=== PATIENT | female | born 1980 | race Caucasian/White ===

== ENCOUNTER 2020-03-06 20:45 | Observation (INO) | payer BC, SELFPAY ==
--- NOTE | 2020-03-06 23:36 | OBADM ---
This patient, Va Arreaga, admitted to the OB room Labor/Delivery/Recovery 104 for observation. Patient/family oriented to hospital policies and general routines including ID bracelet, bed and alarms, visiting hours, pain management, procedures, bathroom and other care routines, personal items, smoking policy, room service/diet, and visiting hours. Patient/Family are encouraged to report perceived risks to care and to ask questions if they do not understand what they are told or what they should do.
--- NOTE | 2020-03-29 11:18 | PM.OBTRLD ---
OB - Triage/Final Diagnosis Visit Information Date of evaluation: 03/06/20 Reason for evaluation: threatened labor
== END 2020-03-06 23:30 | disposition home or self-care (01) ==
PROVIDERS: Admitting Provider Student in an Organized Health Care Education/Training Program; PCP Family Medicine Adolescent Medicine; Visit Provider Student in an Organized Health Care Education/Training Program
DX: O47.1 False labor at or after 37 completed weeks of gestation (principal); Z3A.37 37 weeks gestation of pregnancy
CPT/HCPCS: G0378; G0379

== ENCOUNTER 2020-03-11 17:25 | Observation (INO) | payer BC, SELFPAY ==
[2020-03-11 17:55] VITALS: BP 121/80; PULSE 78
[2020-03-11 18:01] VITALS: BP 115/73; PULSE 78
[2020-03-11 18:10] VITALS: TEMP 36.3
[2020-03-11 18:15] VITALS: BMI 27.4
[2020-03-11 18:31] VITALS: BP 111/66; PULSE 78
[2020-03-11 18:57] LABS: Add Urine Microscopic? NO; Appearance Urine Clear (Clear); Bilirubin Urine Negative (Negative); Blood Urine Negative (Negative); Color Urine Straw (Yellow); Glucose Urine UA Negative (Negative); Ketones Urine Negative (Negative); Leukocyte Esterase Ur Negative LEU/UL (NEGATIVE); Nitrate Urine Negative (Negative); Protein Urine Negative (Negative); Specific Grav Ur 1.006 (1.001-1.035); Urobilinogen Urine Negative mg/dL (<2.0)
--- NOTE | 2020-03-11 19:22 | OBADM ---
This patient, Va Arreaga, admitted to the OB room OB Post 116 for observation. Patient/family oriented to hospital policies and general routines including ID bracelet, bed and alarms, visiting hours, pain management, procedures, bathroom and other care routines, personal items, smoking policy, room service/diet, and visiting hours. Patient/Family are encouraged to report perceived risks to care and to ask questions if they do not understand what they are told or what they should do.
--- NOTE | 2020-03-15 15:12 | P.PNOB_ITS ---
OB - Triage/Final Diagnosis Evaluation Laboratory results: Laboratory Tests 03/11/20 18:44 Urine Color Straw Urine Appearance Clear Urine pH 7.0 Ur Specific [place] 1.006 Urine Protein Negative Urine Glucose (UA) Negative Urine Ketones Negative Ur Blood (Man) Negative Urine Nitrate Negative Urine Bilirubin Negative Urine Urobilinogen Negative Ur Leukocyte Esterase Negative Final Diagnosis (1) Lightheadedness: Code(s): R42 - Dizziness and giddiness Status: Acute
== END 2020-03-11 19:20 | disposition home or self-care (01) ==
PROVIDERS: Admitting Provider Obstetrics & Gynecology; PCP Family Medicine Adolescent Medicine; Visit Provider Obstetrics & Gynecology
DX: O26.893 Other specified pregnancy related conditions, third trimester (principal); R42 Dizziness and giddiness; Z3A.38 38 weeks gestation of pregnancy
CPT/HCPCS: 81003; 87077; 87086; 87088; G0378; G0379

== ENCOUNTER 2020-03-17 03:00 | Inpatient (IN) | payer BC, SELFPAY ==
[2020-03-17] VITALS (80 sets, daily range): BP systolic 79–138; BP diastolic 43–103; PULSE 55–93; RESP 16–20; TEMP 36.3–37.3; O2SAT 99–100; BMI 27.8
--- NOTE | 2020-03-17 07:31 | WPDHPUPDATE1 ---
History and Physical Update Update Date/Time: 03/17/20 07:31 40 yo at 39ww0d who presents for elective IOL. She initially presented for r/o labor and her cervix remained unchanged. During monitoring, the fetus was noted to have a prolonged heart rate deceleration. Overall the FHT returned to baseline and reamined category 1 for the remainder of the monitoring. Pt was givent he option of BPP and observation or elective induction give her gestational age. pt opted for IOL. She denies any vaginal bleeding or leakage of fluid. has been uncomplicated thus far. History and Physical has been reviewed, including an updated exam of the patient. There are NO changes in the patient's condition. Risks, benefits, and alternatives have been discussed and questions answered. Patient agrees to proceed with procedure. A/P: 40 yo at 39w0d who elective IOL admit to L&D routine admission orders Rh+ GBS neg FHT cat 1 ctx q 10 min on toco cvx 3cm will start pitocin and augment with AROM continuous EFM
--- NOTE | 2020-03-17 08:01 | LDADM ---
This patient, Va Arreaga, was admitted to Labor/Delivery/Recovery 105 on 03/17/20 at 03:00. Plans for labor, pain management and were discussed with patient. Patient/family oriented to hospital policies and general routines including ID bracelet, bed and alarms, visiting hours, pain management, procedures, bathroom and other care routines, personal items, smoking policy, room service/diet and guest tray routines, security routines, and visiting hours. Patient/Family are encouraged to report perceived risks to care and to ask questions if they do not understand what they are told or what they should do. See OBIX for further documentation.
[2020-03-17 08:04] LABS: Basophils Absolute Auto 0.1 K/mm3 (0.0-0.1); Basophils Percent Auto 0.4 % (0.2-1.2); Eosinophils Absolute Auto 0.3 K/mm3 (0-0.3); Eosinophils Percent Auto 2.5 % (0-4.4); Hemoglobin 11.7 g/dL (12.0-15.0); Immature Granulocyte Absolute 0.17 K/mm3 (0.00-0.031); Immature Granulocyte Percent A 1.5 % (0-0.5); Lymphocytes Percent Auto 24.5 % (18.3-44.2); Mean Corpuscular HGB Conc 33.4 g/dl (32-36); Mean Corpuscular Hemoglobin 29.5 pg (26-34); Mean Corpuscular Volume 88.2 fl (80-100); Mean Platelet Volume 10.9 fl (7.4-10.4); Monocytes Absolute Auto 1.1 K/mm3 (0.1-0.6); Monocytes Percent Auto 9.2 % (2.6-8.5); Neutrophils Absolute Auto 7.1 K/mm3 (1.3-6.7); Neutrophils Percent Auto 61.9 % (45.5-73.1); Platelet Count Result 275 k/mm3 (150-375); Red Blood Count 3.97 M/mm3 (4.2-5.4); Red Cell Distribution Width 12.6 % (11.5-14.5); White Blood Count 11.4 K/mm3 (4.5-10.0)
[2020-03-17] MEDS: OXYTOCIN 30 UNITS/NS 500 ML 30 UNITS/500 ML BAG IV CONT (08:33)
[2020-03-17] MEDS: LACTATED RINGERS 1,000 ML 125 ML IV CONT ×3 (08:33→11:40)
--- NOTE | 2020-03-17 09:20 | PM.OBTRLD ---
OB - Triage/Final Diagnosis Visit Information Date of evaluation: 03/06/20 Reason for evaluation: threatened labor Evaluation Laboratory results: Laboratory Tests 03/17/20 03/17/20 07:49 07:49 WBC 11.4 H RBC 3.97 L Hgb 11.7 L Hct 35.0 L MCV 88.2 MCH 29.5 MCHC 33.4 RDW 12.6 Plt Count 275 MPV 10.9 H Immature Gran % (Auto) 1.5 H Neut % (Auto) 61.9 Lymph % (Auto) 24.5 [place] % (Auto) 9.2 H Eos % (Auto) 2.5 Baso % (Auto) 0.4 Lymph # (Auto) 2.80 [place] # (Auto) 1.1 H Eos # (Auto) 0.3 Baso # (Auto) 0.1 Abs Immat Gran (auto) 0.17 H Absolute Neuts (auto) 7.1 H Absolute Nucleated RBC 0.0 Nucleated RBC % 0.0 Blood Type O Positive Antibody Screen Negative Vital signs: Vital Signs - 24 hr 03/17/20 08:36 Temperature 36.3 C L
--- NOTE | 2020-03-17 10:08 | P.PNAN_ITS ---
Anes - Eval Pre Procedure Procedure: Labor Epidural Date/Time: 03/17/20 10:08 Pre Op Diagnosis: Labor Patient Data Age: 40 Gender: F Height: 1.73 m Weight: 83 kg Last Vital Signs Temp 36.3 C L 03/17/20 08:36 Allergies Allergy/AdvReac Type Severity Reaction Status Date / Time No Known Allergies Allergy Mild Verified 02/25/20 12:35 Home Medications Medication Instructions Recorded Confirmed Type PNV cmb#95-ferrous fumarate-FA 1 tablet PO DAILY 03/11/20 03/17/20 History [] Laboratory Tests 03/17/20 03/17/20 03/17/20 07:49 07:49 07:49 WBC 11.4 K/mm3 H K/mm3 (4.5-10.0) RBC 3.97 M/mm3 L M/mm3 (4.2-5.4) Hgb 11.7 g/dL L g/dL (12.0-15.0) Hct 35.0 % L % (37.0-47.0) MCV 88.2 fl fl (80-100) MCH 29.5 pg pg (26-34) MCHC 33.4 g/dl g/dl (32-36) RDW 12.6 % % (11.5-14.5) Plt Count 275 k/mm3 k/mm3 (150-375) MPV 10.9 fl H fl (7.4-10.4) Immature Gran % (Auto) 1.5 % H % (0-0.5) Neut % (Auto) 61.9 % % (45.5-73.1) Lymph % (Auto) 24.5 % % (18.3-44.2) [place] % (Auto) 9.2 % H % (2.6-8.5) Eos % (Auto) 2.5 % % (0-4.4) Baso % (Auto) 0.4 % % (0.2-1.2) Lymph # (Auto) 2.80 K/mm3 K/mm3 (0.9-3.2) [place] # (Auto) 1.1 K/mm3 H K/mm3 (0.1-0.6) Eos # (Auto) 0.3 K/mm3 K/mm3 (0-0.3) Baso # (Auto) 0.1 K/mm3 K/mm3 (0.0-0.1) Abs Immat Gran (auto) 0.17 K/mm3 H K/mm3 (0.00-0.031) Absolute Neuts (auto) 7.1 K/mm3 H K/mm3 (1.3-6.7) Absolute Nucleated RBC 0.0 K/mm3 K/mm3 (0.0-0.012) Nucleated RBC % 0.0 % % (0.0-0.2) RPR Pending Blood Type O Positive Antibody Screen Negative Patient hx anesthesia problems: none Family hx anesthesia problems: none PMFSH Past Medical History Medical History Anxiety Depression Family History Family History Father Acute myocardial infarction FH: CABG (coronary artery bypass surgery) Stented coronary artery Mother History of open heart surgery History of cardiac radiofrequency ablation Sibling Bipolar 1 disorder Social History Social History Smoking status: Former smoker Substance use: never Spiritual care concerns: No Exam Day of Procedure 03/17/20 10:08 Patient weight: normal Heart: regular rate and rhythm Lungs: normal air movement Airway: Mallampati scale class II Neurological: alert and oriented
--- NOTE | 2020-03-17 13:47 | PM.OBPRVD ---
OB - Delivery Note Procedure Delivery date: 03/17/20 Procedure: Patient pushed for a spontaneous vaginal delivery. The fetus was delivered atraumatically and placed on the maternal abdomen. The cord was clamped and cut after 1 minute of life. The cord was double clamped and cut and a segment of cord was collected for cord gases. Cord blood was collected for blood type and Coomb's testing. The placenta delivered spontaneously and was noted to be intact. The perineum was inspected and there were no lacerations noted. The uterus was firm and good hemostasis was noted. The patient and fetus were stable in the delivery room. Intrapartal events: None Induction method: per pitocin protocol Delivery augmentation: rupture of membranes Delivery monitor: external FHT Route of delivery: Episiotomy description: None Laceration description: None Specimen: No Estimated blood loss (mL): 250 Anesthesia type: Epidural Disposition: floor () Complications: No immediate complications Baby Date of : 03/17/20 Time of : 13:38 Weeks of gestation at delivery: 39 Infant gender: Male Weight (pounds): 7 Weight (ounces): 15 presentation: vertex position: Right Occiput Anterior Placenta delivery description: Spontaneous cord vessel description: 3 Vessels score one minute: 8 score five minutes: 9
[2020-03-17] MEDS: OXYTOCIN 30 UNITS/NS 500 ML 30 UNITS/500 ML BAG 125 UNITS IV CONT (14:18)
[2020-03-17] MEDS: IBUPROFEN 600 MG TABLET PO ×2 (15:01→21:39)
--- NOTE | 2020-03-17 16:46 | PC.NURSE ---
Patient transferred to post room #290 per wheelchair from labor and delivery. Support person present. Oriented to unit, room, information board, rooming in, admission packet and security measures. Patient verbalizes understanding.
[2020-03-17] MEDS: ACETAMINOPHEN 325 MG TABLET 650 MG PO (18:30)
[2020-03-17] MEDS: CYCLOBENZAPRINE HCL 10 MG TABLET PO (19:20)
--- NOTE | 2020-03-17 21:29 | WPDANLDNPN2 ---
Anes-Prog Note L&D-Neuraxial Date/Time: 03/17/20 21:29 Patient feedback: Called to evaluate patient for possible PDPH. Patient reports neck pain that worsens when moving neck in any direction. She feels a tightening in her entire back and legs when she walks. Dr. Mccann prescribed Flexeril which helped alleviate the pain when she laid down. When pain returned, patient remembered epidural placement being difficult and became concerned. I informed patient that due to her symptoms and the confirmation that flexeril helped, this was very likely to be muscle spasms and she should continue with NSAIDs, muscle relaxer and plenty of hydration as prescribed by Dr. Mccann. I also informed her that typical PDPH symptoms begin 24-48 hours after procedure and that there was no documentation of any dural puncture, however we will check on her in the morning for any change in symptoms.
[2020-03-18] MEDS: IBUPROFEN 600 MG TABLET PO ×3 (02:37→14:35)
[2020-03-18 05:26] LABS: Hematocrit 31.8 % (37.0-47.0); Hemoglobin 10.4 g/dL (12.0-15.0)
[2020-03-18 07:40] VITALS: BP 101/64; PULSE 57; RESP 20; TEMP 36.8
[2020-03-18] MEDS: DOCUSATE SODIUM 100 MG CAPSULE PO (07:42)
[2020-03-18] MEDS: MULTIVIT/MIN/PREN/FOL AC/IRON TABLET 1 TAB PO (07:42)
--- NOTE | 2020-03-18 07:43 | PM.OBDSVD ---
DS: Admitting Diagnosis Admitting Diagnosis Admitting Diagnosis: Labor OB - DS: Summary Hospital Course Hospital Course: Pt presented for r/o labor and was kept for elective IOL after FHT showed a prolonged deceleration. Pt had an uncomplicated . In her course, pt had a dull aching neck pain start. She states the pain come with a lot of pressure and radiates down her back to her legs. She denies any vision changes, dizziness, imbalance, headache. She was evaluated by anesthesia for a spinal headache. Pt states her pain was improved with [place] and Flexeril. She reports minimal bleeding and normal lochia. She is ambulating and voiding without difficutly. She denies any N/V. OB Procedures : None OB Procedures Intrapartum: Spontaneous Vag Delivery OB Procedures: : None Peripartum Data Delivery Method: Natural Vaginal Laceration description: None complications: other (Neck/back pain) Status at Discharge Functional status at discharge: independent ambulation Overall status at discharge: patient is progressing back to baseline Time Spent with Patient Time attestation: Total time spent providing and/or coordinating discharge services: Time spent: Less than 30 minutes DS: Data Data Completed and Pending Labs on day of discharge: Labs from last 24 hours 03/18/20 03/17/20 03/17/20 03:41 07:49 07:49 WBC RBC Hgb 10.4 L Hct 31.8 L MCV MCH MCHC RDW Plt Count MPV Immature Gran % (Auto) Neut % (Auto) Lymph % (Auto) [place] % (Auto) Eos % (Auto) Baso % (Auto) Lymph # (Auto) [place] # (Auto) Eos # (Auto) Baso # (Auto) Abs Immat Gran (auto) Absolute Neuts (auto) Absolute Nucleated RBC Nucleated RBC % RPR Pending Blood Type O Positive Antibody Screen Negative 03/17/20 07:49 WBC 11.4 H RBC 3.97 L Hgb 11.7 L Hct 35.0 L MCV 88.2 MCH 29.5 MCHC 33.4 RDW 12.6 Plt Count 275 MPV 10.9 H Immature Gran % (Auto) 1.5 H Neut % (Auto) 61.9 Lymph % (Auto) 24.5 [place] % (Auto) 9.2 H Eos % (Auto) 2.5 Baso % (Auto) 0.4 Lymph # (Auto) 2.80 [place] # (Auto) 1.1 H Eos # (Auto) 0.3 Baso # (Auto) 0.1 Abs Immat Gran (auto) 0.17 H Absolute Neuts (auto) 7.1 H Absolute Nucleated RBC 0.0 Nucleated RBC % 0.0 RPR Blood Type Antibody Screen Discharge Plan Discharge Discharging Clinician: Cliff Mccann Patient Disposition: Home, Self-Care Activity: as tolerated and pelvic rest Diet: regular Discharge Instructions: call or return for temperature >100.4, bleeding >2 pads/hr for 2 hrs, pain not controlled with medications, signs/symptoms of mastitis Patient Instructions: Antibiotic Form, Vaginal Delivery (DC) Stand Alone Forms: General Discharge Information Follow-up/Referrals: Donald West MD [Physician] - Discharge Medications: New hydrocodone-acetaminophen 5-325 mg Tablet 1 tab PO Q3H PRN (Reason: Pain Rated 4-6) Qty: 28 RF: 0 Knf-U-Jtepeq Cream 1 applic topical PRN PRN (Reason: Sore Nipples) Qty: 1 RF: 0 cyclobenzaprine 10 mg tablet 10 mg PO BID PRN (Reason: muscle spasm) Qty: 30 RF: 0 docusate sodium 100 mg Capsule 100 mg PO BID PRN (Reason: Constipation) Qty: 30 RF: 0 ibuprofen 600 mg Tablet 600 mg PO Q6H PRN (Reason: Cramping) Qty: 30 RF: 0 Continued PNV cmb#95-ferrous fumarate-FA [] 28 mg iron- 800 mcg Tablet 1 tablet PO DAILY RF: 0 Date of admission: 03/17/20 03:00 Primary Care Provider: Anthony Andrade Admitting Provider: Donald West Attending physician on admission: Donald West
[2020-03-18] MEDS: CYCLOBENZAPRINE HCL 10 MG TABLET PO (09:07)
[2020-03-18] MEDS: ALPRAZolam 0.25 MG TABLET PO (10:40)
--- NOTE | 2020-03-18 12:00 | PC.NURSE ---
Patient instructed on viewing the discharge video Mother & Baby Care, The First Two Weeks . Patient was given the opportunity and encouraged to ask questions. Patient verbalized understanding of information shared and has been given the mother/baby guide for home reference.
--- NOTE | 2020-03-18 13:16 | P.PCNANE_ITS ---
Anes - Epidural Blood Patch PN Date/Time: 03/18/20 13:16 Consent: I have discussed with the patient/family/POA, the rationale of a lumbar epidural autologous blood patch for the treatment of post-dural puncture headache (spinal headache), including associated potential risks, benefits, comp lications and side effects. I have also discussed more conservative treatment options such as intravenous hydration, caffeine and non-prescription analgesics. The patient/family/POA, understand(s) and wish(es) to proceed with epidural autologous blood patch as treatment for the patient's post-dural puncture headache. Time-Out: A pre-procedural Time-Out was completed immediately before starting the procedure and confirmed: Patient Identification, Site, Procedure, Patient Position and the Availability of Requisite Equipment. Epidural Insertion Note Patient position: sitting Skin prep: chlorhexidine Needle: 18 gauge Tuohy-Schliff Technique: loss of resistance Observations: tolerated well and blood (20cc blood injected without issue) Complications: none and other (20cc blood drawn in sterile fashion from left AC by RN)
--- NOTE | 2020-03-18 14:58 | WPDANLDPN2 ---
Anes-Prog Note L&D Date/Time: 03/18/20 14:20 Comfortable throughout: labor and delivery Neuraxial method: epidural Epidural/Spinal procedure site: clean & non-tender Neuro status: Neuro function grossly intact. Cardiovascular status: normal Respiratory status: normal Airway patency: baseline Mental status: baseline Post-Op hydration status: normal Vital Signs: Last Vital Signs Temp 36.8 C 03/18/20 07:40 Pulse 57 L 03/18/20 07:40 Resp 20 03/18/20 07:40 BP 101/64 03/18/20 07:40 Pulse Ox 100 03/17/20 19:20 Post-procedural complaints: other (neck spasm and frontal headache) Patient feedback: Patient satisfied with anesthetic care.
--- NOTE | 2020-03-18 15:02 | P.PNAN_ITS ---
Anes-Prog Note L&D-Neuraxial Date/Time: 03/18/20 15:02 Patient feedback: Evaluated patient 1 hour, 15 minutes following epidural blood patch procedure. Patient found to be lying supine and comfortable, reported sleeping for hour following procedure. Patient HOB slowly elevated to 60 deg lizzette. On immediate assessment, patient reported significantly improved symptoms following the blood patch. However, after 2 minutes of sitting, the patient reported that her lateral and posterior neck again began to spasm, which was beginning to result in a frontal headache. Patient was returned to the supine position where she reported her symptoms were again improved.
--- NOTE | 2020-03-18 15:42 | PC.NURSE ---
Pt feeling much better after blood patch. She is able to sit up comfortably and walk to the bathroom easily. She desires discharge and Dr. Mccann was notified of pt status and discharge plan.
--- NOTE | 2020-03-18 15:42 | WPDANLDNPN2 ---
Anes-Prog Note L&D-Neuraxial Date/Time: 03/18/20 15:42 Patient feedback: Again saw patient 2.5 hours following epidural blood patch procedure. Patient found to be sitting with HOB at 80 degrees which she elevated slowly on her own since last visit. She reports her symptoms are now much more improved. She reports that she was not able to sit up like this before at all.
[2020-03-20 08:57] LABS: Rapid Plasma Reagin Non-Reactive (NonReactive)
[2020-03-20 13:14] VITALS: BP 111/81; PULSE 63; RESP 16; TEMP 36.6; O2SAT 99
== END 2020-03-18 16:23 | disposition home or self-care (01) | DRG 807 ==
LOC: ANHOB2 03-18 15:41 → ANHLDR 03-21 14:37 → ANHOB2 03-21 14:37
PROVIDERS: Admitting Provider Student in an Organized Health Care Education/Training Program; PCP Family Medicine Adolescent Medicine; Visit Provider Student in an Organized Health Care Education/Training Program
DX: O36.8330 Maternal care for abnormalities of the fetal heart rate or rhythm, third trimester, not applicable or unspecified (principal); Z37.0 Single live birth; Z3A.39 39 weeks gestation of pregnancy; O74.5 Spinal and epidural anesthesia-induced headache during labor and delivery; O99.89 Other specified diseases and conditions complicating pregnancy, childbirth and the puerperium; M62.838 Other muscle spasm; M54.2 Cervicalgia; O99.344 Other mental disorders complicating childbirth; F41.8 Other specified anxiety disorders
CPT/HCPCS: 36415; 62273; 85014; 85018; 85025; 86592; 86850; 86900; 86901; A9270; J2590; J2795; J7120